=== PATIENT | male | born 1965 | race Caucasian/White ===

== ENCOUNTER 2020-10-14 14:28 | Emergency (ER) | payer BC ==
[2020-10-14] MEDS ORDERED: Nitroglycerin 0.4 MG Tab.SL SL PRN (15:02)
[2020-10-14] MEDS ORDERED: Aspirin 81 MG Tab.Chew PO ONE (15:02)
--- NOTE | 2020-10-14 15:05 | EDM.PDOC ---
ED HPI GENERAL MEDICAL PROBLEM - General Chief Complaint: Chest Pain Stated Complaint: CHEST PAINS Time Seen by Provider: 10/14/20 14:57 Source of Information: Reports: Patient, RN Notes Reviewed History Limitations: Reports: No Limitations - History of Present Illness INITIAL COMMENTS - FREE TEXT/NARRATIVE: 55-year-old gentleman presents the emergency department a complaint of chest pain, he states he has had chest pain for the last several months notices more when he exerts himself will get nauseated however the last couple of days it has gotten significantly worse he does have a history of diabetes he gets no diaphoresis no vomiting he has had a stress test several years ago does not use tobacco products no coronary artery history, chest pain-free at this time Chest Pain Score (Numeric/FACES): 2 - Related Data Allergies Allergy/AdvReac Type Severity Reaction Status Date / Time No Known Allergies Allergy Verified 05/28/15 21:50 Home Meds: Home Meds PARoxetine [Paxil] 10 mg PO DAILY 10/14/20 [History] atorvaSTATin [Lipitor] 20 mg PO BEDTIME 10/14/20 [History] metFORMIN [Glucophage] 1,000 mg PO BID 10/14/20 [History] Past Medical History Cardiovascular History: Reports: High Cholesterol, Hypertension Endocrine/Metabolic History: Reports: Diabetes, Type II Social & Family History - Tobacco Use Tobacco Use Status *Q: Never Tobacco User - Caffeine Use Caffeine Use: Reports: Coffee - Recreational Drug Use Recreational Drug Use: No ED ROS GENERAL - Review of Systems Review Of Systems: See Below Constitutional: Reports: No Symptoms HEENT: Reports: No Symptoms Respiratory: Reports: Shortness of Breath Cardiovascular: Reports: Chest Pain GI/Abdominal: Reports: Nausea : Reports: No Symptoms ED EXAM, GENERAL - Physical Exam Exam: See Below Exam Limited By: No Limitations General Appearance: Alert, WD/WN, No Apparent Distress Respiratory/Chest: No Respiratory Distress, Lungs Clear, Normal Breath Sounds, No Accessory Muscle Use, Chest Non-Tender Cardiovascular: Regular Rate, Rhythm, No Murmur GI/Abdominal: Soft, Non-Tender Course - Vital Signs Last Recorded V/S: Last Vital Signs Temp 97 F 10/14/20 14:40 Pulse 85 10/14/20 16:14 Resp 20 10/14/20 16:14 BP 164/98 H 10/14/20 16:14 Pulse Ox 95 10/14/20 16:14 - Orders/Labs/Meds Orders: Active Orders 24 hr Category Date Time Status Cardiac Monitoring [RC] .As Directed Care 10/14/20 15:02 Active EKG Documentation Completion [RC] ASDIRECTED Care 10/14/20 15:03 Active Peripheral IV Care [RC] . DIRECTED Care 10/14/20 15:59 Active CORONAVIRUS COVID-19 RAPID [MOLEC] Stat Lab 10/14/20 16:38 Received Heparin Sodium/D5W [Heparin 25,000 Units in D5W 500 ML] Med 10/14/20 16:45 Ordered 25,000 units in 500 ml IV TITRATE Nitroglycerin 25 MG in D5W @ 10 MCG/MIN(250ml) Premix Med 10/14/20 16:45 Ordered Nitroglycerin/D5W [Nitroglycerin 25 MG/D5W 250 ML] 25 mg in 250 ml IV TITRATE Nitroglycerin [Nitrostat] Med 10/14/20 15:02 Active 0.4 mg SL Q5M PRN Sodium Chloride 0.9% [Saline Flush] Med 10/14/20 15:59 Active 10 ml FLUSH ASDIRECTED PRN Peripheral IV Insertion Adult [OM.PC] Urgent Oth 10/14/20 15:59 Ordered EKG 12 Lead [EK] Stat Ther 10/14/20 15:02 Ordered Medication Orders Heparin Sodium/Dextrose (Heparin 25,000 Units In D5w 500 Ml) 25,000 units in 500 mls @ 17.418 mls/hr IV TITRATE FILIPE; Protocol Nitroglycerin/Dextrose (Nitroglycerin 25 Mg/D5w 250 Ml) 25 mg in 250 mls @ 6 mls/hr IV TITRATE FILIPE; Protocol Nitroglycerin (Nitrostat) 0.4 mg SL Q5M PRN PRN Reason: Chest Pain Stop: 10/15/20 15:02 Last Admin: 10/14/20 15:59 Dose: 0.4 mg Documented by: [email or web address] Sodium Chloride (Saline Flush) 10 ml FLUSH ASDIRECTED PRN PRN Reason: Keep Vein Open Last Admin: 10/14/20 16:04 Dose: 10 ml Documented by: [id number] Labs: Laboratory Tests 10/14/20 10/14/20 Range/Units 15:10 15:10 WBC 7.2 (4.5-11.0) K/uL RBC 5.27 (4.30-5.90) M/uL Hgb 15.6 H (12.0-15.0) g/dL Hct 46.3 (40.0-54.0) % MCV 88 (80-98) fL MCH 30 (27-31) pg MCHC 34 (32-36) % Plt Count 246 (150-400) K/uL Neut % (Auto) 77 H (36-66) % Lymph % (Auto) 14 L (24-44) % [place] % (Auto) 8 H (2-6) % Eos % (Auto) 1 L (2-4) % Baso % (Auto) 0 (0-1) % Sodium 138 L (140-148) mmol/L Potassium 4.8 (3.6-5.2) mmol/L Chloride 100 (100-108) mmol/L Carbon Dioxide 28 (21-32) mmol/L Anion Gap 14.8 H (5.0-14.0) mmol/L BUN 18 (7-18) mg/dL Creatinine 1.6 H (0.8-1.3) mg/dL Est Cr Clr Drug Dosing 51.55 mL/min Estimated GFR (MDRD) 45 L (>60) Glucose 251 H (74-106) mg/dL Calcium 9.7 (8.5-10.1) mg/dL Troponin I 1.059 H* (0.000-0.056) ng/mL Meds: Medications Generic Name Dose Route Start Last Admin Trade Name Freq PRN Reason Stop Dose Admin Heparin Sodium/Dextrose 25,000 units in 500 mls @ 17.418 mls/hr 10/14/20 16:45 Heparin 25,000 Units In D5w 500 Ml IV TITRATE FILIPE Protocol 12 UNITS/KG/HR Nitroglycerin/Dextrose 25 mg in 250 mls @ 6 mls/hr 10/14/20 16:45 Nitroglycerin 25 Mg/D5w 250 Ml IV TITRATE FILIPE Protocol 10 MCG/MIN Nitroglycerin 0.4 mg 10/14/20 15:02 10/14/20 15:59 Nitrostat SL 10/15/20 15:02 0.4 mg Q5M PRN Administration Chest Pain Sodium Chloride 10 ml 10/14/20 15:59 10/14/20 16:04 Saline Flush FLUSH 10 ml ASDIRECTED PRN Administration Keep Vein Open Discontinued Medications Generic Name Dose Route Start Last Admin Trade Name Freq PRN Reason Stop Dose Admin Aspirin 324 mg 10/14/20 15:02 10/14/20 16:00 Aspirin PO 10/14/20 15:03 324 mg ONETIME ONE Administration Heparin Sodium (Porcine) 4,000 units 10/14/20 16:34 Heparin Sodium IVPUSH 10/14/20 16:35 ONETIME ONE Departure - Departure Time of Disposition: 16:40 Disposition: DC/Tfer to Acute Hospital 02 Reason for Transfer *Q: Primary PCI Indicated Condition: Fair Clinical Impression: Non-ST elevation myocardial infarction (NSTEMI) Referrals: PCP,None [Primary Care Provider] - Forms: ED Department Discharge Sepsis Event Note (ED) - Evaluation Sepsis Screening Result: No Definite Risk - Focused Exam Vital Signs: Vital Signs Temp Pulse Resp BP BP Pulse Ox 10/14/20 16:14 85 20 164/98 H 95 10/14/20 15:59 178/105 H 10/14/20 15:11 90 18 186/103 H 97 10/14/20 14:40 97 F 91 16 212/116 H 98 10/14/20 14:39 97 F 91 16 212/116 H 98 - My Orders Last 24 Hours: My Active Orders 10/14/20 15:02 Cardiac Monitoring [RC] .As Directed Nitroglycerin [Nitrostat] 0.4 mg SL Q5M PRN EKG 12 Lead [EK] Stat 10/14/20 15:03 EKG Documentation Completion [RC] ASDIRECTED 10/14/20 15:59 Peripheral IV Care [RC] . DIRECTED Sodium Chloride 0.9% [Saline Flush] 10 ml FLUSH ASDIRECTED PRN Peripheral IV Insertion Adult [OM.PC] Urgent 10/14/20 16:38 CORONAVIRUS COVID-19 RAPID [MOLEC] Stat 10/14/20 16:45 Heparin Sodium/D5W [Heparin 25,000 Units in D5W 500 ML] 25,000 units in 500 ml IV TITRATE Nitroglycerin 25 MG in D5W @ 10 MCG/MIN(250ml) Premix Nitroglycerin/D5W [Nitroglycerin 25 MG/D5W 250 ML] 25 mg in 250 ml IV TITRATE - Assessment/Plan Last 24 Hours: My Active Orders 10/14/20 15:02 Cardiac Monitoring [RC] .As Directed Nitroglycerin [Nitrostat] 0.4 mg SL Q5M PRN EKG 12 Lead [EK] Stat 10/14/20 15:03 EKG Documentation Completion [RC] ASDIRECTED 10/14/20 15:59 Peripheral IV Care [RC] . DIRECTED Sodium Chloride 0.9% [Saline Flush] 10 ml FLUSH ASDIRECTED PRN Peripheral IV Insertion Adult [OM.PC] Urgent 10/14/20 16:38 CORONAVIRUS COVID-19 RAPID [MOLEC] Stat 10/14/20 16:45 Heparin Sodium/D5W [Heparin 25,000 Units in D5W 500 ML] 25,000 units in 500 ml IV TITRATE Nitroglycerin 25 MG in D5W @ 10 MCG/MIN(250ml) Premix Nitroglycerin/D5W [Nitroglycerin 25 MG/D5W 250 ML] 25 mg in 250 ml IV TITRATE Plan: Assessment Acuity = acute Site and laterality = non-ST elevation myocardial infarction Etiology = probable underlying coronary artery disease Manifestations = none Location of injury = Home Lab values = CBC unremarkable creatinine elevated 1.6 consistent with chronic renal failure stage T3a troponin elevated 1.059 consistent with myocardial infarction chest x-ray shows no acute process EKG does show ST changes minimal in leads V1 and II does have some ST depressions in the lateral leads Plan Call discussed case with cardiology Dr. Deng [facility] at 1630 felt this was not a STEMI felt it was non-STEMI recommended heparin and IV nitro no Brilinta, next discussed the case with Dr. Roberson emergency room physician [facility] at 1640 he kindly excepted patient in transport will be transported via EMS ground Covid test is pending This note was dictated using [employer] voice recognition software please call with any questions on syntax or grammar.
--- NOTE | 2020-10-14 15:39 | CR ---
CHEST: 2 view CLINICAL HISTORY:Chest pain COMPARISON:None FINDINGS: The heart size, pulmonary vascularity and hilar structures are normal. No infiltrate effusion or pneumothorax is seen. IMPRESSION: No acute cardiopulmonary process.
[2020-10-14] MEDS ORDERED: Sodium Chloride 0.9% 10 ML Syringe FLUSH PRN (15:59)
[2020-10-14] MEDS ORDERED: Heparin Sodium 5,000 Units/ML Vial IVPUSH ONE (16:34)
[2020-10-14 16:42] VITALS: BP 196/118; PULSE 101
[2020-10-14] MEDS ORDERED: Nitroglycerin/D5W 25 MG/250 ML BOTTLE IV SCH (16:45)
[2020-10-14] MEDS ORDERED: Heparin Sodium/D5W 25,000 UNITS/500 ML BAG IV SCH (16:45)
== END 2020-10-14 18:07 ==
LOC: JP.ED 14:28
DX: I21.4 Non-ST elevation (NSTEMI) myocardial infarction (principal); I10 Essential (primary) hypertension; E78.00 Pure hypercholesterolemia, unspecified; E11.9 Type 2 diabetes mellitus without complications; Z20.828 Contact with and (suspected) exposure to other viral communicable diseases; Z79.899 Other long term (current) drug therapy
CPT/HCPCS: 36415; 71046; 80048; 84484; 85025; 87635; 93005; 96365; 96368; 99285; A9270; J1644; J3490; U0002